=== PATIENT | female | born 1985 | race Caucasian/White ===

== ENCOUNTER → 2018-06-08 | Emergency (ER) | payer BC, OTHER ==
[2018-06-08] MEDS: METHYLPREDNISOLONE 125 MG INJ IM (13:10)
== END | disposition home or self-care (01) ==
LOC: FTE 12:40
DX: J20.9 Acute bronchitis, unspecified (principal); J45.901 Unspecified asthma with (acute) exacerbation
CPT/HCPCS: 96372; 99284-25